=== PATIENT | female | born 1980 | race Caucasian/White ===

== ENCOUNTER 2020-09-01 05:50 | Emergency (ER) | payer BC ==
--- OUTSIDE RECORDS SUMMARY | 2020-09-01 05:53 | XMS REPORT | Summary of Care ---
:1980 Author Organization [facility] Address [address] [place] [id number] Care Team Providers Name Role Phone Darwin Nichols Primary Care Provider Reason for Visit Reason Comments Appointment Encounter Details Date Type Department Care Team Description 08/31/2020 Telephone [facility] Endocrinology- Caleb Jenkins MD Appointment [address] [address] [address] [place] [address] [place] [address] [phone] Allergies No Known Allergiesdocumented as of this encounter (statuses as of 08/31/2020) Medications Medication Sig Dispensed Refills Start Date End Date Status dextroamphetamine-amphet Take 30 mg by 0 Active amine (AMPHETAMINE SALT mouth 2 (two) COMBO) 30 mg tablet times daily. norethindrone-e.estradio Take 1 Tab by 0 Active l-iron (LO LOESTRIN FE) mouth daily. 1 mg-10 mcg (24)/10 mcg (2) Tab levothyroxine 112 mcg Take 1 tablet by 90 tablet 3 10/04/2019 Active tabletIndications: mouth every Hypothyroidism, morning. unspecified type documented as of this encounter (statuses as of 08/31/2020) Active Problems Problem Noted Date Hypothyroidism, unspecified type 09/22/2017 documented as of this encounter (statuses as of 08/31/2020) Social History Tobacco Use Types Packs/Day Years Used Date Never Smoker Smokeless Tobacco: Never Used Alcohol Use Drinks/Week oz/Week Comments Yes 2-3 Standard drinks or equivalent 1.7 - 2.5 Sex Assigned at Date Recorded Not on file documented as of this encounter Last Filed Vital Signs Not on filedocumented in this encounter Miscellaneous Notes Telephone Encounter - Melissa Sherman - 08/31/2020 12:11 PM CSTSpoke with patient and she is scheduled with Dr Linton on Monday-10/23/2020 at 11:00am. 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 Patient prefers to see outside [facility] Rheumatology due to now appointments available at [facility] until October-November (for new patient) Patient also needs a follow up scheduled with Dr Linton for her Thyroid. Patient has not been seensince 09/2019. PSS: Please call patient and schedule follow up with Dr Linton for Thyroid. elephone Encounter - Zainab Richter - 08/31/2020 10:24 AM CSTPatient is requesting to be soon. She has been having some joint pain and a rash and would like to see Dr. Linton. Please advise. documented in this encounter Plan of Treatment Date Type Specialty Care Team Description 10/23/2020 Office Visit Endocrinology Diabetes & Caleb Werner MD Metabolism [address] [place] [address] 15 [phone] Health Maintenance Due Date Last Done Comments Depression Screening 1992 SARS-CoV-2 (COVID-19) Vaccine 1996 (1 of 2) DTaP,Tdap,and Td Vaccines (1 1999 - Tdap) Breast Cancer Screening 2020 (MAMMOGRAM) INFLUENZA VACCINE (#1) 2020 PAP SMEAR 09/04/2020 09/04/2017 (Previously completed) PNEUMOCOCCAL 0-64 YEARS Aged Out No longe r eligible based COMBINED SERIES on patient's age to complete [facility] documented as of this encounter Results Not on filedocumented in this encounter Insurance Payer Benefit Plan Subscriber ID Effective Dates Phone Address Type / Group [facility] [id number] 2014-[place]ina [phone] [address] PPO/POS [place] - OUT OF nt [id number] [place] [address] documented as of this encounter
--- OUTSIDE RECORDS SUMMARY | 2020-09-01 05:53 | XMS REPORT | Continuity of Care Document ---
:1980 Author Organization [facility] t Address [address] [place] [address] Care Team Providers Name Role Phone Noni Linton MD Attending Clinician Problems This patient has no known problems. Allergies, Adverse Reactions, Alerts This patient has no known allergies or adverse reactions. Medications This patient has no known medications. Procedures This patient has no known procedures. Encounters Start End Encounter Admission Attending Care Care Encounter Source Date/Time Date/Time Type Type Clinicians Facility Department ID 2020-08-31 2020-08-31 Telephone GRACIA Linton [id number] 00:00:00 00:00:00 Caleb Cruz [id number] [place] [id number] [facility] [place] [id number] [address] [address] 2019-12-07 2019-12-07 Orders OLAYINKA Linton [id number] 00:00:00 00:00:00 Only Caleb H ABDIAS [id number] [facility] [id number] 2019-10-04 2019-10-04 Office GRACIA Linton [id number] 16:13:39 16:50:09 Visit Caleb Cruz [id number] [place] [id number] [facility] [id number] [address] Building Results This patient has no known results.
[2020-09-01] MEDS ORDERED: NA CHLORIDE 0.9% 500 ML ONE (06:42)
[2020-09-01 07:00] LABS: Absolute Lymphocytes (CBC) 1.4 K/uL (0.7-4.9); Basophils % 0.4 % (0-1.3); Hematocrit 40.8 % (36.0-45.0); Lymphocytes % 13.5 % (15.3-44.8); MPV 6.7 fL (7.6-11.3); RBC Red Blood Cell Count 4.28 M/uL (3.86-4.86)
[2020-09-01 07:17] LABS: C-Reactive Protein 77.2 mg/L (<3.00); Potassium 3.4 mmol/L (3.5-5.1)
--- NOTE | 2020-09-01 07:31 | ER ---
Nurse's Notes [facility] Name: Autumn Carver Age: 40 yrs Sex: Female : 1980 Arrival Date: 09/01/2020 Time: 05:52 Bed 7 Private MD: Darwin Nichols H Diagnosis: Polyarthritis, unspecified Presentation: 09/01 06:03 Ebola Screen: No symptoms or risks identified at this time. Initial Sepsis Screen: Does ea the patient meet any 2 criteria? No. Patient's initial sepsis screen is negative. Does the patient have a suspected source of infection? No. Patient's initial sepsis screen is negative. Risk Assessment: Do you want to hurt yourself or someone else? Patient reports no desire to harm self or others. 06:03 Acuity: DANDRE 3 ea 06:13 Coronavirus screen: At this time, the client does not indicate any symptoms associated ea with coronavirus-19. 06:13 Method Of Arrival: Ambulatory ea 06:14 Chief complaint: Patient states: reports rash on chest and elbows that has resolved em after going to urgent care and receiving prednisone, has now developed joint pain and a rash on the right ankle, denies fever. Onset of symptoms was August 17, 2020. Historical: - Allergies: 06:16 No Known Allergies; em - PMHx: 06:16 hashimotos; em - PSHx: 06:16 None; em - Immunization history:: Adult Immunizations up to date. - Social history:: Smoking status: unknown. - Family history:: not pertinent. - Hospitalizations: : No recent hospitalization is reported. Screenin:02 Abuse screen: Denies threats or abuse. Nutritional screening: No deficits noted. ea Tuberculosis screening: No symptoms or risk factors identified. Fall Risk None identified. Assessment: 06:20 General: Appears in no apparent distress. Behavior is calm, cooperative, appropriate ea for age. Pain: Denies pain. Neuro: Level of Consciousness is awake, alert, obeys commands, Oriented to person, place, time. Cardiovascular: Patient's skin is warm and dry. Respiratory: Airway is patent Respiratory effort is even, unlabored, Respiratory pattern is regular, symmetrical. Derm: Skin is pink, warm \T\ dry. 07:00 Reassessment: RECD REPORT FROM MARYJO CAPONE. 40YO WF P/W JOINT PAIN AFTER RASH. ALL CURRENT bp ORDERS COMPLETE. Vital Signs: 06:03 BP 145 / 104; Pulse 110; Resp 20; Temp 98.3; Pulse Ox 100% ; ea 06:53 BP 122 / 85; Pulse 89; Resp 18; Pulse Ox 98% on R/A; ea ED Course: 05:52 Patient arrived in ED. am2 05:53 Darwin Nichols DO is Private Physician. am2 06:02 Patient has correct armband on for positive identification. Bed in low position. Call ea light in reach. Side rails up X2. 06:04 Triage completed. ea 06:04 Arm band placed on right wrist. Patient placed in an exam room, on a stretcher, on ea pulse oximetry. 06:14 Hayes Conn MD is Attending Physician. rn 06:47 Inserted saline lock: 20 gauge in right forearm, using aseptic technique. ea 06:50 Strep swab sent to lab. rr5 07:30 Amador tSarkey, RN is Primary Nurse. bp 07:57 No provider procedures requiring assistance completed. IV discontinued, intact, jl7 bleeding controlled, No redness/swelling at site. Pressure dressing applied. Administered Medications: 06:50 Drug: NS 0.9% 500 ml Route: IV; Rate: bolus; Site: right forearm; rr5 07:20 Follow up: Response: No adverse reaction; IV Status: Completed infusion; IV Intake: jl7 500ml 07:51 Drug: Potassium Effervescent Tablet 25 mEq Route: PO; jl7 07:51 Follow up: Response: Medication administered at discharge. jl7 Intake: 07:20 IV: 500ml; Total: 500ml. jl7 Outcome: 07:30 Discharge ordered by . ma2 07:57 Discharged to home ambulatory. jl7 07:57 Condition: stable 07:57 Discharge instructions given to patient, Instructed on discharge instructions, follow up and referral plans. medication usage, Demonstrated understanding of instructions, follow-up care, medications, Prescriptions given X 3. 07:57 Patient left the ED. jl7 Signatures: Leroy Roy RN Hayes Berrios MD MD rn Leal, Jahala, RN RN jl7 Autumn Nathan am2 Maryjo Lemus RN RN ea Peltier, Brian, RN RN bp Ava Deal MD MD ma2 Merlin Ta, LIBORIO RN rr5
--- NOTE | 2020-09-01 07:32 | EDPHYS ---
Physician Documentation [facility] Name: Autumn Carver Age: 40 yrs Sex: Female : 1980 Arrival Date: 09/01/2020 Time: 05:52 Bed 7 Private MD: Darwin Nichols H ED Physician Hayes Conn HPI: 09/01 06:14 This 40 yrs old Female presents to ER via Ambulatory with complaints of Rash, rn swelling of joints. 06:14 The patient's rash thought to be caused by an unknown cause. The rash is located on the rn body diffusely. The rash can be described as erythematous, itchy. Onset: The symptoms/episode began/occurred 2 week(s) ago. Severity of symptoms: At their worst the symptoms were moderate in the emergency department the symptoms have improved. The patient has not experienced similar symptoms in the past. The patient has been recently seen at an urgent care. Reports working in [employer] 2 weeks ago, developed diffuse rash, seen at urgent care, given steroids which she completed, now comes in for achy joints and recurrence of rash. No fever. Has hashimotos. . Historical: - Allergies: 06:16 No Known Allergies; em - PMHx: 06:16 hashimotos; em - PSHx: 06:16 None; em - Immunization history:: Adult Immunizations up to date. - Social history:: Smoking status: unknown. - Family history:: not pertinent. - Hospitalizations: : No recent hospitalization is reported. ROS: 06:14 Constitutional: Negative for fever, chills, and weight loss, Eyes: Negative for injury, rn pain, redness, and discharge, Neck: Negative for injury, pain, and swelling, Cardiovascular: Negative for chest pain, palpitations, and edema, Respiratory: Negative for shortness of breath, cough, wheezing, and pleuritic chest pain, Abdomen/GI: Negative for abdominal pain, nausea, vomiting, diarrhea, and constipation, Back: Negative for injury and pain, MS/Extremity: + pain and subjective swelling both knees Skin: + rash to arms and legs Neuro: Negative for headache, weakness, numbness, tingling, and seizure. Exam: 06:14 Constitutional: This is a well developed, well nourished patient who is awake, alert, rn and in no acute distress. Ambulatory to room without assistance, + limp Head/Face: Normocephalic, atraumatic. ENT: MMM, mild pharyngeal erythema, no stridor Neck: Trachea midline, no masses palpated, and no cervical lymphadenopathy. Cardiovascular: Tachycardic, regular Respiratory: No increased work of breathing, no retractions or nasal flaring. Abdomen/GI: Soft, non-tender Skin: Warm, dry, + nonspecific erythematous rash to arms and RLE. MS/ Extremity: Pulses equal, no cyanosis. + mild painful ROM bilateral knees with blanching erythema Neuro: Awake and alert, GCS 15, oriented to person, place, time, and situation. Cerebellar exam normal. Antalgic gait Vital Signs: 06:03 BP 145 / 104; Pulse 110; Resp 20; Temp 98.3; Pulse Ox 100% ; ea 06:53 BP 122 / 85; Pulse 89; Resp 18; Pulse Ox 98% on R/A; ea MDM: 06:14 Patient medically screened. rn 06:57 Transition of care: After a detail discussion of the patient's case, care is rn transferred to Ava Deal MD. 07:29 Differential diagnosis: arthritis vs reumatic disease, sle vs reactive arthritis. Data ma2 reviewed: vital signs, nurses notes. Counseling: I had a detailed discussion with the patient and/or guardian regarding: the historical points, exam findings, and any diagnostic results supporting the discharge/admit diagnosis, the presence of at least one elevated blood pressure reading (>120/80) during this emergency department visit, the need for outpatient follow up. Response to treatment: the patient's symptoms have markedly improved after treatment. 09/01 06:23 Order name: CBC with Diff rn 09/01 06:23 Order name: Basic Metabolic Panel rn 09/01 06:23 Order name: C-Reactive Protein rn 09/01 06:23 Order name: Strep rn 09/01 06:23 Order name: Coles Screen Profile rn 09/01 06:23 Order name: Blood Culture Adult (2) rn 09/01 06:23 Order name: Procalcitonin rn 09/01 07:12 Order name: CBC with Automated Diff; Complete Time: 07:21 EDMS 09/01 07:18 Order name: Basic Metabolic Panel; Complete Time: 07:21 EDMS 09/01 07:18 Order name: C-Reactive Protein; Complete Time: 07:21 [facility] 09/01 07:19 Order name: Group A Streptococcus Rapid Sc; Complete Time: 07:21 [facility] 09/01 07:33 Order name: Coles Screen [facility] 09/01 07:35 Order name: Procalcitonin [facility] 09/01 06:23 Order name: IV Start; Complete Time: 06:52 rn Administered Medications: 06:50 Drug: NS 0.9% 500 ml Route: IV; Rate: bolus; Site: right forearm; rr5 07:20 Follow up: Response: No adverse reaction; IV Status: Completed infusion; IV Intake: jl7 500ml 07:51 Drug: Potassium Effervescent Tablet 25 mEq Route: PO; jl7 07:51 Follow up: Response: Medication administered at discharge. jl7 Disposition: 09/01/20 07:30 Discharged to Home. Impression: Polyarthritis, unspecified. - Condition is Stable. - Discharge Instructions: Arthritis, [id number]. - Prescriptions for Klor- Con 8 mEq Oral Tablet Sustained Release - take 1 tablet by ORAL route once daily; 20 tablet. Medrol (Javad) 4 mg Oral Tablets, Dose Pack - take 1 tablet by ORAL route as directed - follow package instructions; 1 packet. Diclofenac Sodium 75 mg Oral Tablet Sustained Release - take 1 tablet by ORAL route 2 times per day; 30 tablet. - Medication Reconciliation Form, Thank You Letter, Antibiotic Education, Prescription Opioid Use form. - Follow up: Private Physician; When: Tomorrow; Reason: Continuance of care. Signatures: Dispatcher [employer] [facility] Leroy Roy, RN Hayes Berrios MD MD rn Leal, Jahala, RN RN jl7 Maryjo Lemus RN RN ea Alzahri, Mohammad, MD MD ma2 Merlin Ta RN RN rr5 Corrections: (The following items were deleted from the chart) 07:57 07:30 09/01/2020 07:30 Discharged to Home. Impression: Polyarthritis, unspecified. jl7 Condition is Stable. Prescriptions for Klor-Con 8 mEq Oral Tablet Sustained Release - take 1 tablet by ORAL route once daily; 20 tablet, Medrol (Javad) 4 mg Oral Tablets, Dose Pack - take 1 tablet by ORAL route as directed - follow package instructions; 1 packet, Diclofenac Sodium 75 mg Oral Tablet Sustained Release - take 1 tablet by ORAL route 2 times per day; 30 tablet. and Forms are Medication Reconciliation Form, Thank You Letter, Antibiotic Education, Prescription Opioid Use. Follow up: Private Physician; When: Tomorrow; Reason: Continuance of care. ma2
[2020-09-01] MEDS ORDERED: POTASSIUM 25 MEQ EFFERV TAB ONE (07:52)
[2020-09-01 08:01] VITALS: TEMP 98.3
[2020-09-01 08:06] VITALS: BP 122/85; O2SAT 98
== END 2020-09-01 07:57 | disposition home or self-care (01) ==
LOC: ER 05:50
DX: M13.0 Polyarthritis, unspecified (principal); R21 Rash and other nonspecific skin eruption
CPT/HCPCS: 87040 ×2; 87070; 85025; 80048; 36415; 86308; 87081; 84145; 86140; 99284; J7040

== ENCOUNTER → 2023-07-30 | Emergency (ER) | payer BC ==
[~2023-07-30] MED LIST: KETOROLAC 30 MG/ML INJ ONE
--- OUTSIDE RECORDS SUMMARY | 2023-07-30 12:59 | XMS REPORT | Continuity of Care Document ---
Author Name Unknown Address [address] [facility] [address] [place] [address] [facility] Address [address] [facility] [address] [place] [address] Care Team Providers Care Salvage Clerk Name Role Phone Darwin Nichols Primary Care Physician [phone] CALEB LINTON Attending Clinician Unavailabl e [email or web address]_Kadimoya_S Attending Clinician Unavaila Caleb Khan MD Attending Clinician [phone] Doctor Unassigned, [place] Attending Clinician U anand Comer MD, Leonarda Attending Clinician [phone] Jd Pizarro Attending Clinician [phone] DANUTA GALEAS Attending Clinician Unavailable [email or web address]_Kadiyala_S Admitting Clinician Ajith carrasco Payers Payer Name Policy Type Policy Number Effective Date Expirati on Date Source [place] [id number] 2014 00:00:00 [place] [id number] 2014 00:00:00 Problems Condition Name Condition Details Condition Category Status Onset Date Resolution Date Last Treatment Date Treating Clinician Comments Source Hypothyroi dism, unspecifie d type Hypothyroi dism, unspecifie d type Disease Active 09-22 00:00: 00 [facility] Allergies, Adverse Reactions, Alerts Allergy Name Allergy Type Status Severity Reaction(s) Onset Date Inactive Date Treating Clinician Comments Source NO KNOWN ALLERGIE S Drug Class Active [facility] Social History Social Habit Start Date Stop Date Quantity Comments [facility] 2023-04-28 00:00:00 2023-04-28 00:00:00 Current drinker of alcohol (finding) [facility] History of Social function 2023-04-28 00:00:00 2023-04-28 00:00:00 [facility] Exposure to SARS-CoV-2 (event) 2022-04-19 00:00:00 2022-04-29 16:14:00 Not sure [facility] Tobacco use and exposure 2020-10-23 00:00:00 2020-10-23 00:00:00 Never used [facility] Sex Assigned At 1980 00:00:00 1980 00:00:00 [facility] Smoking Status Start Date Stop Date Source Never smoked tobacco [facility] Medications Ordered Medication Name Filled Medication Name Start Date Stop Date Current Medication? Ordering Clinician Indication Dosage Frequency Signature (SIG) Comments Components Source levothyroxi ne 125 mcg tablet 04-28 00:00: 00 Yes [id number] 125ug Take 1 tablet by mouth every morning. [facility] levothyroxi ne 125 mcg tablet 04-28 00:00: 00 Yes [id number] 125ug Take 1 tablet by mouth every morning. [facility] levothyroxi ne 125 mcg tablet 2021-07 00:00: 00 Yes [id number] 125ug Take 1 tablet by mouth every morning. [facility] levothyroxi ne 125 mcg tablet 2021-07 00:00: 00 Yes [id number] 125ug Take 1 tablet by mouth every morning. [facility] levothyroxi ne 125 mcg tablet 2021-07 00:00: 00 04-28 00:00 :00 No [id number] 125ug Take 1 tablet by mouth every morning. [facility] levothyroxi ne 125 mcg tablet 2021-07 00:00: 00 04-28 00:00 :00 No [id number] 125ug Take 1 tablet by mouth every morning. [facility] norethindro ne-e.estrad iol-iron (LO LOESTRIN FE) 1 mg-10 mcg (24)/10 mcg (2) Tab 04-29 16:30: 46 Yes 1{tbl} Take 1 Tab by mouth daily. [facility] norethindro ne-e.estrad iol-iron (LO LOESTRIN FE) 1 mg-10 mcg (24)/10 mcg (2) Tab 04-29 16:30: 46 Yes 1{tbl} Take 1 Tab by mouth daily. [facility] norethindro ne-e.estrad iol-iron (LO LOESTRIN FE) 1 mg-10 mcg (24)/10 mcg (2) Tab 04-29 16:30: 46 Yes 1{tbl} Take 1 Tab by mouth daily. [facility] norethindro ne-e.estrad iol-iron (LO LOESTRIN FE) 1 mg-10 mcg (24)/10 mcg (2) Tab 04-29 16:30: 46 Yes 1{tbl} Take 1 Tab by mouth daily. [facility] norethindro ne-e.estrad iol-iron (LO LOESTRIN FE) 1 mg-10 mcg (24)/10 mcg (2) Tab 04-29 16:30: 46 Yes 1{tbl} Take 1 Tab by mouth daily. [facility] norethindro ne-e.estrad iol-iron (LO LOESTRIN FE) 1 mg-10 mcg (24)/10 mcg (2) Tab 04-29 16:30: 46 Yes 1{tbl} Take 1 Tab by mouth daily. [facility] norethindro ne-e.estrad iol-iron (LO LOESTRIN FE) 1 mg-10 mcg (24)/10 mcg (2) Tab 04-29 16:30: 46 Yes 1{tbl} Take 1 Tab by mouth daily. [facility] norethindro ne-e.estrad iol-iron (LO LOESTRIN FE) 1 mg-10 mcg (24)/10 mcg (2) Tab 04-29 16:30: 46 Yes 1{tbl} Take 1 Tab by mouth daily. [facility] norethindro ne-e.estrad iol-iron (LO LOESTRIN FE) 1 mg-10 mcg (24)/10 mcg (2) Tab 04-29 16:30: 46 Yes 1{tbl} Take 1 Tab by mouth daily. [facility] dextroamphe tamine-amph etamine (AMPHETAMIN E SALT COMBO) 30 mg tablet 04-29 16:30: 44 Yes 30mg Take 30 mg by mouth 2 (two) times daily. [facility] dextroamphe tamine-amph etamine (AMPHETAMIN E SALT COMBO) 30 mg tablet 04-29 16:30: 44 Yes 30mg Take 30 mg by mouth 2 (two) times daily. [facility] dextroamphe tamine-amph etamine (AMPHETAMIN E SALT COMBO) 30 mg tablet 04-29 16:30: 44 Yes 30mg Take 30 mg by mouth 2 (two) times daily. [facility] dextroamphe tamine-amph etamine (AMPHETAMIN E SALT COMBO) 30 mg tablet 04-29 16:30: 44 Yes 30mg Take 30 mg by mouth 2 (two) times daily. [facility] dextroamphe tamine-amph etamine (AMPHETAMIN E SALT COMBO) 30 mg tablet 04-29 16:30: 44 Yes 30mg Take 30 mg by mouth 2 (two) times daily. [facility] dextroamphe tamine-amph etamine (AMPHETAMIN E SALT COMBO) 30 mg tablet 04-29 16:30: 44 Yes 30mg Take 30 mg by mouth 2 (two) times daily. [facility] dextroamphe tamine-amph etamine (AMPHETAMIN E SALT COMBO) 30 mg tablet 04-29 16:30: 44 Yes 30mg Take 30 mg by mouth 2 (two) times daily. [facility] dextroamphe tamine-amph etamine (AMPHETAMIN E SALT COMBO) 30 mg tablet 0 04-29 16:30: 44 Yes 30mg Take 30 mg by mouth 2 (two) times daily. [facility] dextroamphe tamine-amph etamine (AMPHETAMIN E SALT COMBO) 30 mg tablet 04-29 16:30: 44 Yes 30mg Take 30 mg by mouth 2 (two) times daily. [facility] levothyroxi ne 112 mcg tablet 0 04-29 00:00: 00 Yes [id number] 112ug Take 1 tablet by mouth every morning. [facility] levothyroxi ne 112 mcg tablet 0 04-29 00:00: 00 Yes [id number] 112ug Take 1 tablet by mouth every morning. [facility] levothyroxi ne 112 mcg tablet 0 04-29 00:00: 00 Yes [id number] 112ug Take 1 tablet by mouth every morning. [facility] levothyroxi ne 112 mcg tablet 0 04-29 00:00: 00 06-03 00:00 :00 No [id number] 112ug Take 1 tablet by mouth every morning. [facility] LEVOTHYROXI NE 112 mcg tablet 0 02-27 00:00: 00 Yes [id number] TAKE 1 TABLET BY MOUTH EVERY DAY IN THE MORNING [facility] LEVOTHYROXI NE 112 mcg tablet 2021-0 02-27 00:00: 00 04-29 00:00 :00 No [id number] TAKE 1 TABLET BY MOUTH EVERY DAY IN THE MORNING [facility] LEVOTHYROXI NE 112 mcg tablet 2021-0 02-27 00:00: 00 04-29 00:00 :00 No [id number] TAKE 1 TABLET BY MOUTH EVERY DAY IN THE MORNING [facility] LEVOTHYROXI NE 112 mcg tablet 2021-0 12-01 00:00: 00 Yes [id number] TAKE 1 TABLET BY MOUTH EVERY DAY IN THE MORNING [facility] LEVOTHYROXI NE 112 mcg tablet 2022-0 5-04 00:00: 00 02-27 00:00 :00 No [id number] TAKE 1 TABLET BY MOUTH EVERY DAY IN THE MORNING [facility] levothyroxi ne 112 mcg tablet 2020-07 027 00:00: 00 Yes [id number] 112ug Take 1 tablet by mouth every morning. [facility] levothyroxi ne 112 mcg tablet 2020-07 027 00:00: 00 12-01 00:00 :00 No [id number] 112ug Take 1 tablet by mouth every morning. [facility] levothyroxi ne 112 mcg tablet 0 27 00:00: 00 Yes [id number] 112ug Take 1 tablet by mouth every morning. [facility] levothyroxi ne 112 mcg tablet 0 11-24 00:00: 00 05-26 00:00 :00 No [id number] 112ug Take 1 tablet by mouth every morning. [facility] LEVOTHYROXI NE 112 mcg tablet 2020-0 318 00:00: 00 Yes [id number] TAKE 1 TABLET BY MOUTH EVERY DAY IN THE MORNING [facility] LEVOTHYROXI NE 112 mcg tablet 2020-0 318 00:00: 00 Yes [id number] TAKE 1 TABLET BY MOUTH EVERY DAY IN THE MORNING [facility] LEVOTHYROXI NE 112 mcg tablet 2020-0 318 00:00: 00 Yes [id number] TAKE 1 TABLET BY MOUTH EVERY DAY IN THE MORNING [facility] LEVOTHYROXI NE 112 mcg tablet 2020-0 318 00:00: 00 Yes [id number] TAKE 1 TABLET BY MOUTH EVERY DAY IN THE MORNING [facility] LEVOTHYROXI NE 112 mcg tablet 1-0 318 00:00: 00 Yes [id number] TAKE 1 TABLET BY MOUTH EVERY DAY IN THE MORNING [facility] LEVOTHYROXI NE 112 mcg tablet 2020-0 3-18 00:00: 00 Yes [id number] TAKE 1 TABLET BY MOUTH EVERY DAY IN THE MORNING [facility] LEVOTHYROXI NE 112 mcg tablet 2020-0 318 00:00: 00 2021- 04-27 00:00 :00 No [id number] TAKE 1 TABLET BY MOUTH EVERY DAY IN THE MORNING [facility] levothyroxi ne 112 mcg tablet 10-03 00:00: 00 Yes [id number] 112ug Take 1 tablet by mouth every morning. [facility] levothyroxi ne 112 mcg tablet 10-03 00:00: 00 Yes [id number] 112ug Take 1 tablet by mouth every morning. [facility] levothyroxi ne 112 mcg tablet 10-03 00:00: 00 Yes [id number] 112ug Take 1 tablet by mouth every morning. [facility] levothyroxi ne 112 mcg tablet 10-03 00:00: 00 Yes [id number] 112ug Take 1 tablet by mouth every morning. [facility] levothyroxi ne 112 mcg tablet 10-03 00:00: 00 10-15 00:00 :00 No [id number] 112ug Take 1 tablet by mouth every morning. [facility] levothyroxi ne 112 mcg tablet 10-03 00:00: 00 10-15 00:00 :00 No [id number] 112ug Take 1 tablet by mouth every morning. [facility] LEVOTHYROXI NE 112 mcg tablet 01-14 00:00: 00 10-03 00:00 :00 No TAKE 1 TABLET BY MOUTH EVERY DAY IN THE MORNING [facility] LEVOTHYROXI NE 112 mcg tablet 01-14 00:00: 00 10-03 00:00 :00 No TAKE 1 TABLET BY MOUTH EVERY DAY IN THE MORNING [facility] dextroamphe tamine-amph etamine (AMPHETAMIN E SALT COMBO) 30 mg tablet 09-28 23:00: 41 Yes 30mg Take 30 mg by mouth 2 (two) times daily. [facility] norethindro ne-e.estrad iol-iron (LO LOESTRIN FE) 1 mg-10 mcg (24)/10 mcg (2) Tab 09-28 23:00: 41 Yes 1{tbl} Take 1 Tab by mouth daily. [facility] dextroamphe tamine-amph etamine (AMPHETAMIN E SALT COMBO) 30 mg tablet 09-28 23:00: 41 Yes 30mg Take 30 mg by mouth 2 (two) times daily. [facility] norethindro ne-e.estrad iol-iron (LO LOESTRIN FE) 1 mg-10 mcg (24)/10 mcg (2) Tab 09-28 23:00: 41 Yes 1{tbl} Take 1 Tab by mouth daily. [facility] dextroamphe tamine-amph etamine (AMPHETAMIN E SALT COMBO) 30 mg tablet 09-28 23:00: 41 Yes 30mg Take 30 mg by mouth 2 (two) times daily. [facility] ne-[facility] iol-iron (LO LOESTRIN FE) 1 mg-10 mcg (24)/10 mcg (2) Tab 09-28 23:00: 41 Yes 1{tbl} Take 1 Tab by mouth daily. [facility] dextroamphe tamine-amph etamine (AMPHETAMIN E SALT COMBO) 30 mg tablet 09-28 23:00: 41 Yes 30mg Take 30 mg by mouth 2 (two) times daily. [facility] norethiriro ne-e.estrad iol-iron (LO LOESTRIN FE) 1 mg-10 mcg (24)/10 mcg (2) Tab 09-28 23:00: 41 Yes 1{tbl} Take 1 Tab by mouth daily. [facility] dextroamphe tamine-amph etamine (AMPHETAMIN E SALT COMBO) 30 mg tablet 09-28 23:00: 41 Yes 30mg Take 30 mg by mouth 2 (two) times daily. [facility] norethindro ne-e.estrad iol-iron (LO LOESTRIN FE) 1 mg-10 mcg (24)/10 mcg (2) Tab 09-28 23:00: 41 Yes 1{tbl} Take 1 Tab by mouth daily. [facility] dextroamphe tamine-amph etamine (AMPHETAMIN E SALT COMBO) 30 mg tablet 09-28 23:00: 41 Yes 30mg Take 30 mg by mouth 2 (two) times daily. [facility] norethindro ne-e.estrad iol-iron (LO LOESTRIN FE) 1 mg-10 mcg (24)/10 mcg (2) Tab 09-28 23:00: 41 Yes 1{tbl} Take 1 Tab by mouth daily. [facility] dextroamphe tamine-amph etamine (AMPHETAMIN E SALT COMBO) 30 mg tablet 09-28 23:00: 41 Yes 30mg Take 30 mg by mouth 2 (two) times daily. [facility] ne-[facility] iol-iron (LO LOESTRIN FE) 1 mg-10 mcg (24)/10 mcg (2) Tab 09-28 23:00: 41 Yes 1{tbl} Take 1 Tab by mouth daily. [facility] dextroamphe tamine-amph etamine (AMPHETAMIN E SALT COMBO) 30 mg tablet 09-28 23:00: 41 Yes 30mg Take 30 mg by mouth 2 (two) times daily. [facility] norethiriro ne-e.estrad iol-iron (LO LOESTRIN FE) 1 mg-10 mcg (24)/10 mcg (2) Tab 09-28 23:00: 41 Yes 1{tbl} Take 1 Tab by mouth daily. [facility] dextroamphe tamine-amph etamine (AMPHETAMIN E SALT COMBO) 30 mg tablet 09-28 23:00: 41 Yes 30mg Take 30 mg by mouth 2 (two) times daily. [facility] norethindro ne-e.estrad iol-iron (LO LOESTRIN FE) 1 mg-10 mcg (24)/10 mcg (2) Tab 09-28 23:00: 41 Yes 1{tbl} Take 1 Tab by mouth daily. [facility] dextroamphe tamine-amph etamine (AMPHETAMIN E SALT COMBO) 30 mg tablet 09-28 23:00: 41 Yes 30mg Take 30 mg by mouth 2 (two) times daily. [facility] norethindro ne-e.estrad iol-iron (LO LOESTRIN FE) 1 mg-10 mcg (24)/10 mcg (2) Tab 09-28 23:00: 41 Yes 1{tbl} Take 1 Tab by mouth daily. [facility] dextroamphe tamine-amph etamine (AMPHETAMIN E SALT COMBO) 30 mg tablet 09-28 23:00: 41 Yes 30mg Take 30 mg by mouth 2 (two) times daily. [facility] ne-[facility] iol-iron (LO LOESTRIN FE) 1 mg-10 mcg (24)/10 mcg (2) Tab 09-28 23:00: 41 Yes 1{tbl} Take 1 Tab by mouth daily. [facility] dextroamphe tamine-amph etamine (AMPHETAMIN E SALT COMBO) 30 mg tablet 09-28 23:00: 41 Yes 30mg Take 30 mg by mouth 2 (two) times daily. [facility] norethindro ne-e.estrad iol-iron (LO LOESTRIN FE) 1 mg-10 mcg (24)/10 mcg (2) Tab 09-28 23:00: 41 Yes 1{tbl} Take 1 Tab by mouth daily. [facility] dextroamphe tamine-amph etamine (AMPHETAMIN E SALT COMBO) 30 mg tablet 09-28 17:00: 41 Yes 30mg Take 30 mg by mouth 2 (two) times daily. [facility] norethindro ne-e.estrad iol-iron (LO LOESTRIN FE) 1 mg-10 mcg (24)/10 mcg (2) Tab 09-28 17:00: 41 Yes 1{tbl} Take 1 Tab by mouth daily. [facility] dextroamphe tamine-amph etamine (AMPHETAMIN E SALT COMBO) 30 mg tablet 09-28 17:00: 41 Yes 30mg Take 30 mg by mouth 2 (two) times daily. [facility] norethiriro ne-e.estrad iol-iron (LO LOESTRIN FE) 1 mg-10 mcg (24)/10 mcg (2) Tab 09-28 17:00: 41 Yes 1{tbl} Take 1 Tab by mouth daily. [facility] dextroamphe tamine-amph etamine (AMPHETAMIN E SALT COMBO) 30 mg tablet 09-28 17:00: 41 Yes 30mg Take 30 mg by mouth 2 (two) times daily. [facility].est[facility] iol-iron (LO LOESTRIN FE) 1 mg-10 mcg (24)/10 mcg (2) Tab 09-28 17:00: 41 Yes 1{tbl} Take 1 Tab by mouth daily. [facility] Immunizations Ordered Immunization Name Filled Immunization Name Date Status Comments Source SARS-COV-2 COVID-19 PFIZER VACCINE 2020-11-07 00:00:00 Completed [facility] SARS-COV-2 COVID-19 PFIZER VACCINE 2020-11-07 00:00:00 Completed [facility] SARS-COV-2 COVID-19 PFIZER VACCINE 2020-11-07 00:00:00 Completed [facility] SARS-COV-2 COVID-19 PFIZER VACCINE 2020-11-07 00:00:00 Completed [facility] SARS-COV-2 COVID-19 PFIZER VACCINE 2020-11-07 00:00:00 Completed [facility] SARS-COV-2 COVID-19 PFIZER VACCINE 2020-11-07 00:00:00 Completed [facility] SARS-COV-2 COVID-19 PFIZER VACCINE 2020-11-07 00:00:00 Completed [facility] SARS-COV-2 COVID-19 PFIZER VACCINE 2020-11-07 00:00:00 Completed [facility] SARS-COV-2 COVID-19 PFIZER VACCINE 2020-11-07 00:00:00 Completed [facility] SARS-COV-2 COVID-19 PFIZER VACCINE 2020-11-07 00:00:00 Completed [facility] SARS-COV-2 COVID-19 PFIZER VACCINE 2020-10-17 00:00:00 Completed [facility] SARS-COV-2 COVID-19 PFIZER VACCINE 2020-10-17 00:00:00 Completed [facility] SARS-COV-2 COVID-19 PFIZER VACCINE 2020-10-17 00:00:00 Completed [facility] SARS-COV-2 COVID-19 PFIZER VACCINE 2020-10-17 00:00:00 Completed [facility] SARS-COV-2 COVID-19 PFIZER VACCINE 2020-10-17 00:00:00 Completed [facility] SARS-COV-2 COVID-19 PFIZER VACCINE 2020-10-17 00:00:00 Completed [facility] SARS-COV-2 COVID-19 PFIZER VACCINE 2020-10-17 00:00:00 Completed [facility] SARS-COV-2 COVID-19 PFIZER VACCINE 2020-10-17 00:00:00 Completed [facility] SARS-COV-2 COVID-19 PFIZER VACCINE 2020-10-17 00:00:00 Completed [facility] SARS-COV-2 COVID-19 PFIZER VACCINE 2020-10-17 00:00:00 Completed [facility] SARS-COV-2 COVID-19 PFIZER VACCINE 2020-10-17 00:00:00 Completed [facility] SARS-COV-2 COVID-19 PFIZER VACCINE 2020-10-17 00:00:00 Completed [facility] SARS-COV-2 COVID-19 PFIZER VACCINE 2020-10-17 00:00:00 Completed [facility] SARS-COV-2 COVID-19 PFIZER VACCINE 2020-10-17 00:00:00 Completed [facility] SARS-COV-2 COVID-19 PFIZER VACCINE Unknown Completed [facility] SARS-COV-2 COVID-19 PFIZER VACCINE Unknown Completed [facility] SARS-COV-2 COVID-19 PFIZER VACCINE Unknown Completed [facility] SARS-COV-2 COVID-19 PFIZER VACCINE Unknown Completed [facility] SARS-COV-2 COVID-19 PFIZER VACCINE Unknown Completed [facility] SARS-COV-2 COVID-19 PFIZER VACCINE Unknown Completed [facility] Vital Signs Vital Name Observation Time Observation Value Comments S ource Systolic blood pressure 2023-04-28 21:25:00 124 mm[Hg] [facility] Diastolic blood pressure 2023-04-28 21:25:00 82 mm[Hg] [facility] Heart rate 2023-04-28 21:25:00 76 /min [facility] Body height 2023-04-28 21:25:00 162.6 cm [facility] Body weight 2023-04-28 21:25:00 80.559 kg [facility] BMI 2023-04-28 21:25:00 30.48 kg/m2 [facility] Oxygen saturation in Arterial blood by Pulse oximetry 2023-04-28 21:25:00 100 /min [facility] Systolic blood pressure 2022-04-29 21:22:00 142 mm[Hg] [facility] Diastolic blood pressure 2022-04-29 21:22:00 94 mm[Hg] [facility] Heart rate 2022-04-29 21:22:00 92 /min [facility] Body weight 2022-04-29 21:22:00 78.472 kg [facility] BMI 2022-04-29 21:22:00 28.79 kg/m2 [facility] Oxygen saturation in Arterial blood by Pulse oximetry 2022-04-29 21:22:00 97 /min [facility] Systolic blood pressure 2020-10-23 16:01:00 134 mm[Hg] [facility] Diastolic blood pressure 2020-10-23 16:01:00 84 mm[Hg] [facility] Heart rate 2020-10-23 16:01:00 106 /min [facility] Respiratory rate 2020-10-23 16:01:00 18 /min [facility] Body height 2020-10-23 16:01:00 165.1 cm [facility] Body weight 2020-10-23 16:01:00 76.658 kg [facility] BMI 2020-10-23 16:01:00 28.12 kg/m2 [facility] Systolic blood pressure 2019-10-04 22:17:00 133 mm[Hg] [facility] Diastolic blood pressure 2019-10-04 22:17:00 88 mm[Hg] [facility] Heart rate 2019-10-04 22:17:00 89 /min [facility] Respiratory rate 2019-10-04 22:17:00 16 /min [facility] Body height 2019-10-04 22:17:00 165.1 cm [facility] Body weight 2019-10-04 22:17:00 71.033 kg [facility] BMI 2019-10-04 22:17:00 26.06 kg/m2 [facility] Systolic blood pressure 2019-10-04 22:17:00 133 mm[Hg] [facility] Diastolic blood pressure 2019-10-04 22:17:00 88 mm[Hg] [facility] Heart rate 2019-10-04 22:17:00 89 /min [facility] Respiratory rate 2019-10-04 22:17:00 16 /min [facility] Body height 2019-10-04 22:17:00 165.1 cm [facility] Body weight 2019-10-04 22:17:00 71.033 kg [facility] BMI 2019-10-04 22:17:00 26.06 kg/m2 [facility] Procedures Procedure Date / Time Performed Performing Clinicia n Source ASSIGNMENT OF BENEFITS 2023-04-28 21:17:56 Docto r Unassigned, [place] [facility] T-4, FREE-Q 2022-05-30 15:33:00 Caleb Linton [facility] TSH, 3RD GENERATION-Q 2022-05-30 15:33:00 Bill Linton [facility] T-4, FREE-Q 2020-10-31 15:27:00 Caleb Linton [facility] TSH, 3RD GENERATION-Q 2020-10-31 15:27:00 Bill Linton [facility] T-4, FREE-Q 2019-12-07 15:14:00 Linton, Caleb [facility] TSH, 3RD GENERATION-Q 2019-12-07 15:14:00 Bill Linton [facility] Encounters Start Date/Time End Date/Time Encounter Type Admission Type Attending [facility] Care Department Encounter ID Source 2023-07-26 00:00:00 2023-07-26 00:00:00 Outpatient GC_GCBZW_Ka diyala_S PRIV PRIV [id number] [facility] 2023-06-26 00:00:00 2023-06-26 00:00:00 Outpatient GC_GCBZW_Ka diyala_S PRIV PRIV [id number] [facility] 2023-06-02 00:00:00 2023-06-02 00:00:00 Outpatient GC_GCBZW_Ka diyala_S PRIV PRIV [id number] [facility] 2023-06-02 00:00:00 2023-06-02 00:00:00 Outpatient GC_GCBZW_Ka diyala_S PRIV PRIV [id number] [facility] 2023-05-12 00:00:00 2023-05-12 00:00:00 Outpatient GC_GCBZW_Ka diyala_S PRIV PRIV [id number] [facility] 2023-05-12 00:00:00 2023-05-12 00:00:00 Outpatient GC_GCBZW_Ka diyala_S PRIV PRIV [id number] [facility]23-05-12 00:00:00 2023-05-12 00:00:00 Outpatient GC_GCBZW_Ka diyala_S PRIV PRIV [id number] [facility] 2023-04-28 16:30:00 2023-04-28 16:42:58 Outpatient [facility] [id number] [facility] 2023-04-28 16:30:00 2023-04-28 16:42:58 Office Visit Caleb Linton [facility] [id number] [facility] 2023-04-28 00:00:00 2023-04-28 00:00:00 Orders Only Doctor Unassigned, [place] [facility] [id number] [facility] 2023-03-15 00:00:00 2023-03-15 00:00:00 Outpatient GC_GCBZW_Ka diyala_S PRIV PRIV [id number] [facility] 2023-02-16 00:00:00 2023-02-16 00:00:00 Outpatient GC_GCBZW_Ka diyala_S PRIV PRIV [id number] [facility] 2023-02-13 00:00:00 2023-02-13 00:00:00 Outpatient GC_GCBZW_Ka diyala_S PRIV PRIV [id number] [facility] 2023-02-09 00:00:00 2023-02-09 00:00:00 Outpatient GC_GCBZW_Ka diyala_S PRIV PRIV [id number] [facility] 2023-02-08 00:00:00 2023-02-08 00:00:00 Outpatient GC_GCBZW_Ka diyala_S PRIV PRIV [id number] [facility] 2023-02-06 00:00:00 2023-02-06 00:00:00 Outpatient GC_GCBZW_Ka diyala_S PRIV PRIV [id number] [facility] 2023-02-05 00:00:00 2023-02-05 00:00:00 Outpatient GC_GCBZW_Ka diyala_S PRIV PRIV [id number] [facility] 2022-06-01 00:00:00 2022-06-01 00:00:00 Telephone Leonarda Comer [facility] 1.840.114 350.1.13.10 4.2.7.2.686 [id number] 220 [id number] [facility] 2022-05-30 00:00:00 2022-05-30 00:00:00 Orders Only Caleb Linton Noni [facility] 1.840.114 350.1.13.10 4.2.7.2.686 [id number] [id number] [facility] 2022-04-29 16:00:00 2022-04-29 16:51:46 Outpatient R CALEB LINTON [facility] [id number] [facility] 2022-04-29 16:00:00 2022-04-29 16:51:46 [facility] MED[facility] OFF[facility] BUILDING 1.840.114 350.1.13.10 4.2.7.2.686 [id number] 220 [id number] [facility] 2022-03-04 16:30:00 2022-03-04 16:30:00 Outpatient R CALEB LINTON [facility] [id number] [facility] 2022-02-27 00:00:00 2022-02-27 00:00:00 [facility] 1.840.114 350.1.13.10 4.2.7.2.686 [id number] 220 [id number] [facility] 2021-12-01 00:00:00 2021-12-01 00:00:00 [facility] MED[facility] OFF[facility] BUILD[facility] 1.840.114 350.1.13.10 4.2.7.2.686 [id number] 220 [id number] [facility] 2021-05-26 00:00:00 2021-05-26 00:00:00 Refill Vladimir Mariead [facility] Professio nal Building 1.2.840.114 350.1.13.10 4.2.7.2.686 [id number] 220 [id number] [facility] 2020-11-24 00:00:00 2020-11-24 00:00:00 Refanthony GeorgeLintonCaleb [facility] Building 1.2.840.114 350.1.13.10 4.2.7.2.686 [id number] 220 [id number] [facility] 2020-11-24 00:00:00 2020-11-24 00:00:00 Patient Secure Caleb Linton [facility] 1.2.840.114 350.1.13.10 4.2.7.2.686 [id number] 220 [id number] [facility] 2020-11-24 00:00:00 2020-11-24 00:00:00 Refill Caleb Linton [facility] 1.2.840.114 350.1.13.10 4.2.7.2.686 [id number] 220 [id number] [facility] 2020-11-07 08:55:00 2020-11-07 08:55:00 Outpatient [facility] [id number] [facility] 2020-10-31 00:00:00 2020-10-31 00:00:00 Orders Only Caleb Linton [facility] 1.2.840.114 350.1.13.10 4.2.7.2.686 [id number] [id number] [facility] 2020-10-29 00:00:00 2020-10-29 00:00:00 Refanthony Caleb Linton [facility] 1.2.840.114 350.1.13.10 4.2.7.2.686 [id number] 220 [id number] [facility] 2020-10-23 10:57:50 2020-10-23 11:55:58 Office Visit Caleb Linton Noni [facility] Building 1.2.840.114 350.1.13.10 4.2.7.2.686 [id number] 220 [id number] [facility] 2020-10-23 11:00:00 2020-10-23 11:00:00 Outpatient R CALEB LINTON [facility] [id number] [facility] 2020-10-17 13:25:00 2020-10-17 13:25:00 Outpatient R DANUTA GALEAS [facility] [id number] [facility] 2020-10-15 00:00:00 2020-10-15 00:00:00 Refill Caleb Linton [facility] Building 1.2.840.114 350.1.13.10 4.2.7.2.686 [id number] 220 [id number] [facility] 2020-09-27 00:00:00 2020-09-27 00:00:00 Patient Secure Msg LintonCaleb [facility] BUILDING 1.2.840.114 350.1.13.10 4.2.7.2.686 [id number] 220 [id number] [facility] 2020-09-25 00:00:00 2020-09-25 00:00:00 Patient Secure Msg LintonCaleb [facility] NAL BUILDING 1.2.840.114 350.1.13.10 4.2.7.2.686 [id number] 220 [id number] [facility] 2020-08-31 00:00:00 2020-08-31 00:00:00 Telephone Caleb Linton [facility] nal Building 1.2.840.114 350.1.13.10 4.2.7.2.686 [id number] 220 [id number] 2020-08-31 00:00:00 2020-08-31 00:00:00 [facility] 1.2.840.114 350.1.13.10 4.2.7.2.686 [id number] 220 [id number] [facility] 2020-02-21 10:40:00 2020-02-21 10:40:00 Outpatient R [facility] [id number] [facility] 2019-12-07 00:00:00 2019-12-07 00:00:00 Orders Only [facility] 1.2.840.114 350.1.13.10 4.2.7.2.686 [id number] [id number] 2019-12-07 00:00:00 2019-12-07 00:00:00 [facility] 1.2.840.114 350.1.13.10 4.2.7.2.686 [id number] [id number] [facility] 2019-10-04 16:13:39 2019-10-04 16:50:09 Office Visit Royer [facility] 1.2.840.114 350.1.13.10 4.2.7.2.686 [id number] 2019-10-04 16:13:39 2019-10-04 16:50:09 Office Visit Royer [facility] 1.2.840.114 350.1.13.10 4.2.7.2.686 [id number] 220 [id number] [facility] 2019-10-04 16:30:00 2019-10-04 16:30:00 [id number] Results Test Description Test Time Test Comments Results Result Co mments Source [facility] [id number] 08:00:00* Test Item Value Reference Range Interpretation Comme nts TSH, 3RD GENERATION-Q (test code = 3016-3) mIU/L H ?Reference Range ?> or = 20 Years ?0.40-4.50 ? Ranges ?First trimester ? ?0.26-2.66 ?Second trimester ? 0.55-2.73 ?Third trimester ? ?0.43-2.91 HUGO (test code = HUGO) PERFORMED BY [employer]E; [address] [place] [address]; ABDULLAHI NOYOLA MD Lab Interpretation (test code = 23319-8) Abnormal [facility]4, [id number] 09:00:00* Test Item Value Reference Range Interpretation Comme nts T-4, FREE-Q (test code = 3024-7) 1.6 ng/dL 0.8-1.8 HUGO (test code = HUGO) PERFORMED BY [employer]; [address] [place] [address]; ABDULLAHI NOYOLA MD [facility], [address] [place], [place] [id number] 09:00:00* Test Item Value Reference Range Interpretation Comme nts TSH, 3RD GENERATION-Q (test code = 3016-3) mIU/L L ?Reference Range ?> or = 20 Years ?0.40-4.50 ? Ranges ?First trimester ? ?0.26-2.66 ?Second trimester ? 0.55-2.73 ?Third trimester ? ?0.43-2.91REPOR T COMMENT:FASTING :YES HUGO (test code = HUGO) PERFORMED BY [employer] [facility]; [address] [place] [address]; ABDULLAHI NOYOLA MD Lab Interpretation (test code = 60853-9) Abnormal [facility]-, [id number] 11:00:00* Test Item Value Reference Range Interpretation Comme nts T-4, FREE-Q (test code = 3024-7) 1.5 ng/dL 0.8-1.8 HUGO (test code = HUGO) PERFORMED BY [employer] [facility]; [address] [place] [address]; ABDULLAHI NOYOLA MD [facility], 3RD [id number] 11:00:00* Test Item Value Reference Range Interpretation Comme nts TSH, 3RD GENERATION-Q (test code = 3016-3) mIU/L ?Referen ce Range ?> or = 20 Years ?0.40-4.50 ? Ranges ?First trimester ? ?0.26-2.66 ?Second trimester ? 0.55-2.73 ?Third trimester ? ?0.43-2.91REPORT COMMENT:FASTING:YES HUGO (test code = HUGO) PERFORMED BY [employer]; [address] [place] [address]; ABDULLAHI NOYOLA MD [facility]
--- NOTE | 2023-07-30 14:38 | RAD REPORT ---
EXAM DESCRIPTION: RAD - Wrist Right 3 View - 07/30/2023 1:51 pm CLINICAL HISTORY: Pain;Deformity Pain COMPARISON: <Comparisons> FINDINGS: Intra-articular fracture of the distal radius is present. Moderate soft tissue swelling is present along the posterior wrist. No dislocation.
--- NOTE | 2023-07-30 15:11 | ER ---
Nurse's Notes [facility] Name: Autumn Carver Age: 43 yrs Sex: Female : 1980 Arrival Date: 07/30/2023 Time: 12:55 Bed 17 Private MD: Diagnosis: Acute, closed, intraarticular fracture of right distal radius Presentation: 07/30 13:22 Chief complaint: Patient states: she was roller skating when she fell and tried to kc brace herself with her hands. denies LOC. obvious deformity noted in triage, reports 7/10 pain. Coronavirus screen: At this time, the client does not indicate any symptoms associated with coronavirus-19. Ebola Screen: No symptoms or risks identified at this time. Initial Sepsis Screen: Does the patient meet any 2 criteria? No. Patient's initial sepsis screen is negative. Does the patient have a suspected source of infection? No. Patient's initial sepsis screen is negative. Risk Assessment: Do you want to hurt yourself or someone else? Patient reports no desire to harm self or others. Onset of symptoms was July 30, 2023. 13:22 Method Of Arrival: Ambulatory [facility] 13:22 Acuity: DADNRE 3 kc6 Triage Assessment: 13:24 General: Appears in no apparent distress. comfortable, well groomed, well developed, [facility] Behavior is calm, cooperative, appropriate for age. Pain: Complains of pain in right hand. EENT: No signs and/or symptoms were reported regarding the EENT system. Neuro: Level of Consciousness is awake, alert, obeys commands, Oriented to person, place, time, situation, Appropriate for age. Cardiovascular: Capillary refill < 3 seconds. Respiratory: Airway is patent Trachea midline Respiratory effort is even, unlabored, Respiratory pattern is regular, symmetrical. GI: No signs and/or symptoms were reported involving the gastrointestinal system. : No signs and/or symptoms were reported regarding the genitourinary system. Derm: No signs and/or symptoms reported regarding the dermatologic system. Skin is intact, is healthy with good turgor, Skin is pink, warm \\T\\ dry. Musculoskeletal: Range of motion: limited in right wrist. Injury Description: Deformity sustained to right hand was sustained 1-2 hours ago. 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 - Social history:: Smoking status: Patient denies any tobacco usage or history of. - Family history:: not pertinent. - Hospitalizations: : No recent hospitalization is reported. Screenin:25 [facility] ED Fall Risk Assessment (Adult) History of falling in the last 3 months, kc6 including since admission Yes- single mechanical fall (1 pt) Confusion or Disorientation No (0 pts) Intoxicated or Sedated No (0 pts) Impaired Gait No (0 pts) Mobility Assist Device Used No (0 pt) Altered Elimination No (0 pt) Score/Fall Risk Level 0 - 2 = Low Risk. Abuse screen: Denies threats or abuse. Denies injuries from another. Nutritional screening: No deficits noted. Tuberculosis screening: No symptoms or risk factors identified. Assessment: 13:26 Reassessment: please see triage assessment. kc6 15:04 Reassessment: Patient appears in no apparent distress at this time. No changes from kc6 previously documented assessment. Patient and/or family updated on plan of care and expected duration. Pain level reassessed. Patient is alert, oriented x 3, equal unlabored respirations, skin warm/dry/pink. Vital Signs: 13:22 BP 145 / 100; Pulse 91; Resp 18 S; Pulse Ox 100% on R/A; Weight 74.84 kg (R); Height 5 kc6 ft. 4 in. (R); Pain 7/10; 14:04 BP 133 / 97; Pulse 61; Resp 17 S; Pulse Ox 97% on R/A; kc6 15:05 BP 143 / 95; Pulse 100; Resp 16 S; Pulse Ox 97% on R/A; kc6 13:22 Body Mass Index 28.32 (74.84 kg, 162.56 cm) kc6 13:22 Pain Scale: Adult kc ED Course: 12:58 Patient arrived in ED. ts1 13:09 Hayes Conn MD is Attending Physician. rn 13:16 Ciara Edwards RN is Primary Nurse. kc6 13:24 Triage completed. kc6 13:24 Arm band placed on. kc6 13:25 Patient maintains SpO2 saturation greater than 95% on room air. kc6 13:26 Patient has correct armband on for positive identification. Placed in gown. Bed in low kc6 position. Call light in reach. Side rails up X 1. Client placed on continuous cardiac and pulse oximetry monitoring. NIBP monitoring applied. 13:53 XRAY Wrist RIGHT 3 view In Process Unspecified. EDMS 14:04 finger traps to first and second right digits. kc6 14:04 "Finger Trap" traction in place for forefinger and middle finger. ds4 14:39 Orthoglass splint: Sugar tong splint applied on right arm. kc6 15:09 Lauri Lechuga MD is Referral Physician. rn 15:49 No provider procedures requiring assistance completed. Patient did not have IV access kc6 during this emergency room visit. Administered Medications: 13:59 CANCELLED (Duplicate Order): [id number] mg IM once kc6 14:03 Drug: Ketorolac IM 30 mg IM once Route: IM; Site: left deltoid; kc6 15:04 Follow up: Response: No adverse reaction; Pain is decreased kc6 Medication: 15:50 VIS not applicable for this client. kc6 Outcome: 15:10 Discharge ordered by MD. rn 15:49 Discharged to home ambulatory, kc6 15:49 Condition: good 15:49 Discharge instructions given to patient, Instructed on discharge instructions, follow up and referral plans. medication usage, Demonstrated understanding of instructions, follow-up care, medications, splint care, Prescriptions given X 1, 15:50 Patient left the ED. kc6 Signatures: Dispatcher [employer] EDMS Hayes Conn MD MD rn Swanson, Donovan ds4 Ciara Edwards RN RN [email or web address] Elaine Browne PAS PAS ts1 Corrections: (The following items were deleted from the chart) 13:33 13:22 Chief complaint: Patient states: she was roller skating when she fell and tried kc6 to brace herself with her hands. denies LOC. obvious deformity noted in triage, reports 7/10 pain kc6 15:05 15:05 BP 143 / 95; Pulse 101bpm; Resp 16bpm; Spontaneous; Pulse Ox 97% RA; kc6 kc6
--- NOTE | 2023-07-30 15:11 | EDPHYS ---
Physician Documentation [facility] Name: Autumn Carver Age: 43 yrs Sex: Female : 1980 Arrival Date: 07/30/2023 Time: 12:55 Bed 17 Private MD: ED Physician Hayes Conn HPI: 07/30 14:28 This 43 yrs old Female presents to ER via Ambulatory with complaints of Fall Injury, rn Hand Injury, Hand Pain. 14:28 Details of fall: The patient fell from an upright position, while skating. rn 14:29 Associated injuries: The patient sustained Right wrist. Severity of symptoms: At their rn worst the symptoms were moderate, in the emergency department the symptoms have improved. The patient has not experienced similar symptoms in the past. Patient was rollerskating, fell backward and tried to brace herself. Isolated injury to right wrist. Happened yesterday or the day before.. 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 - Social history:: Smoking status: Patient denies any tobacco usage or history of. - Family history:: not pertinent. - Hospitalizations: : No recent hospitalization is reported. ROS: 14:29 Constitutional: Negative for fever, chills, and weight loss, Neck: Negative for injury, rn pain, and swelling, Cardiovascular: Negative for chest pain Abdomen/GI: Negative for abdominal pain, nausea, vomiting, diarrhea, and constipation, Back: Negative for injury and pain, MS/Extremity: Positive for right wrist injury and pain Skin: Negative for injury, rash, and discoloration, Neuro: Negative for headache, weakness, numbness, tingling, and seizure, Exam: 14:29 Constitutional: This is a well developed, well nourished patient who is awake, alert, rn and in no acute distress. MS/ Extremity: Pulses equal, no cyanosis. Neurovascular intact. Painful range of motion right wrist and tenderness over distal radius. No open wounds. No tenderness or pain proximal to right wrist or in the hand. Vital Signs: 13:22 BP 145 / 100; Pulse 91; Resp 18 S; Pulse Ox 100% on R/A; Weight 74.84 kg (R); Height 5 kc6 ft. 4 in. (R); Pain 7/10; 14:04 BP 133 / 97; Pulse 61; Resp 17 S; Pulse Ox 97% on R/A; kc6 15:05 BP 143 / 95; Pulse 100; Resp 16 S; Pulse Ox 97% on R/A; kc6 13:22 Body Mass Index 28.32 (74.84 kg, 162.56 cm) [facility] 13:22 Pain Scale: Adult kc6 MDM: 13:09 Patient medically screened. rn 15:09 Differential diagnosis: contusion, fracture, sprain. Data reviewed: vital signs, nurses rn notes, radiologic studies, plain films, and as a result, I will discharge patient. Counseling: I had a detailed discussion with the patient and/or guardian regarding the historical points, exam findings, and any diagnostic results supporting the discharge/admit diagnosis, radiology results, the need for outpatient follow up, to return to the emergency department if symptoms worsen or persist or if there are any questions or concerns that arise at home. Response to treatment: the patient's symptoms have mildly improved after treatment, and as a result, I will discharge patient. Special discussion: I discussed with the patient/guardian in detail that at this point there is no indication for admission to the hospital. It is understood, however, that if the symptoms persist or worsen the patient needs to return immediately for re-evaluation. Based on the history and exam findings, there is no indication for further emergent testing or inpatient evaluation. I discussed with the patient/guardian the need to see the orthopedic surgeon for further evaluation of the symptoms. ED course: Intra-articular fracture of the right distal radius. Very minimal loss of height, placed in finger traps and splinted while in traps to maintain length. Will discharge home with Ortho follow-up as may need surgery given no intra-articular extension. No other acute findings.. 07/30 13:29 Order name: XRAY Wrist RIGHT 3 view; Complete Time: 14:43 rn 07/30 13:59 Order name: Sugar Tong Forearm Splint; Complete Time: 14:39 6 07/30 13:59 Order name: Misc. Order: first \T\ second digit finger trap; Complete Time: 14:03 [facility] 07/30 15:11 Order name: Sling; Complete Time: 15:14 rn Administered Medications: 13:59 CANCELLED (Duplicate Order): [id number] mg IM once kc6 14:03 Drug: Ketorolac IM 30 mg IM once Route: IM; Site: left deltoid; kc6 15:04 Follow up: Response: No adverse reaction; Pain is decreased kc6 Disposition Summary: 07/30/23 15:10 Discharge Ordered Notes: Location: Home rn Problem: new rn Symptoms: have improved rn Condition: Stable rn Diagnosis - Acute, closed, intraarticular fracture of right distal radius rn Followup: rn - With: Lauri Lechuga MD - When: As needed - Reason: Recheck today's complaints, Re-evaluation by your physician Discharge Instructions: - Discharge Summary Sheet rn - Cast or Splint Care, Adult rn - Wrist Fracture Treated With Immobilization rn Forms: - Medication Reconciliation Form rn - Thank You Letter rn - Antibiotic rn perioperative - Prescription Opioid Use rn - Patient Portal Instructions rn - Leadership Thank You Letter rn Prescriptions: - Tramadol 50 mg Oral Tablet - take 1 tablet ORAL route every 8 hours as needed; 12 tablet; Refills: 0, rn Product Selection Permitted Signatures: Dispatcher [employer] Hayes Vergara MD MD rn Campbell, Kaitlyn, RN RN kc6 Corrections: (The following items were deleted from the chart) 13:59 13:59 Ketorolac IM 30 mg IM once ordered. rn kc6
[2023-07-30 16:19] VITALS: BP 143/95; O2SAT 97
== END ==
LOC: ER 12:55
PROC: 2W3CX1Z Immobilization of Right Lower Arm using Splint (ICD-10-PCS; principal; 2023-07-30)
DX: S52.571A Other intraarticular fracture of lower end of right radius, initial encounter for closed fracture (principal)
CPT/HCPCS: 96372; 99285